=== PATIENT | female | born 1945 | race Caucasian/White ===

== ENCOUNTER 2017-01-23 11:00 | Observation (INO) | payer MEDICARE ==
--- NOTE | ~2017-01-23 | HP ---
History And Physical [place] [id number] [facility] [place]. [address] NAME: MARCELLE MEJIA : 41 STATUS : ADM Karrie PAT#: [id number] AGE: 71 ADM/REG DATE : 01/23/17 MR#: [id number] REPORT SERV DATE: 01/23/17 DICTATED BY: GEIMNI TOMAS DATE: 01/23/17 REPORT STATUS : Draft TRANSCRIBED BY: MODElvis DATE: 01/23/17 DATE OF ADMISSION: 01/23/2017 PECAN GATHERER: Dr. Awan. CHIEF COMPLAINT: Weak, short of breath, chest pain that has not worsened. HISTORY OF PRESENT ILLNESS: A pleasant 71-year-old white female with no known history of CAD, who recently saw Dr. Awan for cardiac clearance prior to having gallbladder surgery. It was recommended that she have an outpatient stress test and echocardiogram, both scheduled for 01/24, but the patient felt the need to come to the emergency room today for similar symptoms that have not worsened. The patient states that she continues to feel weak, have episodes of shortness of breath and chest pain. This morning around 0630, she had a similar spell with some chest discomfort that radiated towards her shoulders. She reports some associated shortness of breath and belching. Denies nausea, diaphoresis, or dizziness. The chest pain at its most intense was 3/10. At time of interview in the ER, she is pain free. She states the episode lasted approximately two hours in duration. She seemingly took no medicines prior to coming to our hospital. She was driven here by her daughter. There is some hesitation for her to take any aspirin from our facility because she was told to from a previous PCP, Malachi Rucker to only take Tylenol. The patient states she has taken aspirin in the past with no problem, but she did have an anaphylactic reaction to ibuprofen six or eight years ago. The patient denies any personal history of myocardial infarction, stroke, DVT, or pulmonary embolus. The patient recently treated with doxycycline for a pneumonia event. Denies palpitations. No syncopal episodes. Denies PND or orthopnea. PAST MEDICAL HISTORY: 1. GERD. 2. Hypothyroid, on replacement. 3. Denies hypertension, dyslipidemia, or diabetes. 4. Gallstones, needs cardiac clearance for upcoming surgery. PAST SURGICAL HISTORY: Cataract repair. SOCIAL HISTORY: She is with two children. 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 She does not have an exercise routine. She denies tobacco, alcohol, or illicits. FAMILY HISTORY: Father with TIAs at 83 following a carotid endarterectomy. Mother at the age of 97. Sister at 54 suddenly, cause unknown. REVIEW OF SYSTEMS: A 14-point review of systems performed, significant for HPI. No other contributory diagnoses identified. ALLERGIES: IBUPROFEN, ANAPHYLAXIS. History And Physical [address] [address] NAME: MARCELLE MEJIA : 41 STATUS : ADM Karrie PAT#: [id number] AGE: 71 ADM/REG DATE : 01/23/17 MR#: [id number] REPORT SERV DATE: 01/23/17 DICTATED BY: GEMINI TOMAS DATE: 01/23/17 REPORT STATUS : Draft TRANSCRIBED BY: GABI DATE: 01/23/17 HOME MEDICINES: Levothyroxine 75 mcg daily, omeprazole 40 mg daily, vitamin D 2000 units daily, and vitamin B12 1000 mcg daily. PHYSICAL EXAMINATION: VITAL SIGNS: Blood pressure 134/63, pulse 83, respirations 16, temperature 97.0, height 5 feet 5 inches, weight 150 pounds (stated). GENERAL: Cooperative, in no apparent distress. HEENT: Pupils 2 mm, sclera nonicteric. Nares patent. Moist mucous membranes. No xanthelasma. NECK: Trachea midline, no thyromegaly. No JVD. No bruits. LYMPH: No cervical lymphadenopathy. No supraclavicular lymphadenopathy. RESPIRATORY: Unlabored respirations. Breath sounds clear bilaterally to posterior auscultation. No wheezes or rhonchi. CARDIOVASCULAR: Regular rate. No murmur, rub or gallop appreciated. Extremities without edema. Pulses 2+ bilaterally. ABDOMEN: Soft, nontender, nondistended, normal bowel sounds auscultated throughout. No organomegaly. SKIN: Warm, dry extremities. No pallor, or cyanosis. PSYCHIATRIC: Appropriate affect. Alert, oriented x3. LABORATORY DATA: Troponin less than 0.02, second and third pending. Potassium 4.8, BUN 12, creatinine 0.79, glucose 96, magnesium 2.5. WBC 6.9, hemoglobin 13.6, hematocrit 39.3, platelet count 174,000. EKG; sinus rhythm. ASSESSMENT AND PLAN: 1. Substernal chest discomfort with no exertional component described. The patient will be observed in the CPOU to rule out myocardial infarction with serial enzymes and serial EKGs, and held n.p.o. We follow troponins. Negative for MPI in the morning. The patient will be discharged home if low risk, no ischemia. I will also check echocardiogram as well. The patient will be asked to follow up with her PCP and Dr. Awan as appropriate. 2. Gastroesophageal reflux disease. Continue H2 alvino or PPI. 3. Questionable intolerance to aspirin, which patient is hesitant to take aspirin, has been told in the past to only take Tylenol. Given history of ibuprofen anaphylaxis, daughter would prefer that her mother does not take aspirin, although the patient reports that she has taken aspirin in the past without any issue. 4. Weakness. We will check a TSH and free T4. KYLEE/GABI Gemini Tomas, NILA, HAND TOUCH UP PAINTER-BC / [id number] History And Physical [address] [address] NAME: MARCELLE MEJIA : 41 STATUS : ADM Karrie PAT#: [id number] AGE: 71 ADM/REG DATE : 01/23/17 MR#: [id number] REPORT SERV DATE: 01/23/17 DICTATED BY: GEMINI TOMAS DATE: 01/23/17 REPORT STATUS : Draft TRANSCRIBED BY: MODL DATE: 01/23/17 CC: Gemini Tomas, MSN, HAND TOUCH UP PAINTER-BC LORRIE BOOKER
[2017-01-23 13:02] LABS: BASOPHILS 0.1 %; BASOPHILS ABSOLUTE 0.01 10/3/uL (0.0-0.16); EOSINOPHILS 0.4 %; EOSINOPHILS ABSOLUTE 0.03 10/3/uL (0.0-0.53); ER CBC TAT 0 Hrs 04 MinsNP; HEMATOCRIT 39.3 % (36.0-48.0); HEMOGLOBIN 13.6 g/dL (12.0-16.0); IMMATURE GRANULOCYTES 0.1 %; IMMATURE GRANULOCYTES ABSOLUTE 0.01 10/3/uL (0.0-0.11); LYMPHOCYTES 23.9 %; LYMPHOCYTES ABSOLUTE 1.65 10/3/uL (0.67-4.30); MANUAL DIFF NO %; MEAN CORPUS HGB CONC 34.6 g/dL (32.0-36.0); MEAN CORPUSCULAR HEMOGLOB 32.5 pg (26.0-34.0); MEAN PLATELET VOLUME 9.5 fL (9.2-13.0); MONOCYTES 4.4 %; NEUTROPHILS 71.1 %; NEUTROPHILS ABSOLUTE 4.89 10/3/uL (2.02-8.40); PLATELET COUNT 174 10/3/uL (150-400); RBC DISTRIBUTION WIDTH 13.5 % (12.0-16.0); RED CELL COUNT 4.18 10/6/uL (4.0-5.6); WHITE BLOOD CELLS 6.9 10/3/uL (4.5-10.5)
[2017-01-23 13:10] LABS: INTERNATIONAL NORMAL RATI 1.1 UNITS (-); PARTIAL THROMBO TIME 28.6 SEC (22.5-37.2); PROTIME (NOT ORD) 13.8 SEC (12.0-14.5)
[2017-01-23 13:19] LABS: BUN (BLOOD UREA NITROGEN) 12 MG/DL (6-23); CALCIUM, SERUM 9.1 MG/DL (8.5-10.4); CHEST PAIN PROFILE TAT 0 Hrs 21 Mins; CHLORIDE, SERUM 109 MMOL/L (96-112); CO2 (CARBON DIOXIDE) 30 MMOL/L (24-34); CREATININE 0.79 MG/DL (0.55-1.02); GFR AFRICAN AMERICAN 86 ML/MIN (>=60); GFR NON AFRICAN AMERICAN 74 ML/MIN (>=60); GLUCOSE, SERUM 96 MG/DL (60-99); POTASSIUM, SERUM 4.8 MMOL/L (3.5-5.3); SODIUM, SERUM 145 MMOL/L (135-148); TROPONIN I <0.02 NG/ML (<0.05)
[2017-01-23] MEDS ORDERED: PRILOSEC40 MG PO (13:24)
[2017-01-23] MEDS ORDERED: SYN075 PO (13:24)
[2017-01-23] MEDS ORDERED: VITAMIN D2000 UNIT PO (13:24)
[2017-01-23] MEDS ORDERED: CYANO1000T PO (13:25)
[2017-01-23 17:08] LABS: TROPONIN I <0.02 NG/ML (<0.05)
[2017-01-23 17:34] LABS: FREE T4 1.03 NG/DL (0.76-1.46)
[2017-01-23 17:37] LABS: ULTRASENSITIVE TSH 0.718 MCIU/ML (0.358-3.740)
== END 2017-01-24 12:53 | disposition home or self-care (01) ==
LOC: ER 11:00 → CDU1 15:14
PROVIDERS: Clinical Nurse Specialist; Emergency Medicine
DX: R07.2 Precordial pain (principal); K21.9 Gastro-esophageal reflux disease without esophagitis; R53.1 Weakness; E03.9 Hypothyroidism, unspecified; Z82.3 Family history of stroke; Z88.8 Allergy status to other drugs, medicaments and biological substances; Z79.899 Other long term (current) drug therapy; Z79.52 Long term (current) use of systemic steroids
CPT/HCPCS: 71020; 78452; 80048; 83735; 84439; 84443; 84484; 85025; 85610; 85730; 93005; 93017; 93306; 99285; A9270-GY; A9502; G0378